=== PATIENT | female | born 1985 | race Caucasian/White ===

== ENCOUNTER 2019-08-28 20:49 | Emergency (ER) | payer MEDICAID ==
[~2019-08-28] VITALS: Ht 170.2 cm; Wt 86.3 kg
[~2019-08-28 20:49] MED LIST: CYCL-1 PO; HYDR-4383 PO; NAPR-1154 PO
[2019-08-28] MEDS ORDERED: acetaminophen 325mg tablet PO ONE (21:30)
--- NOTE | 2019-08-28 21:49 | NUR ---
GIVEN TYLENOL PO AND GETTING LABS DRAWN NOW. AWAITING ROOM
[2019-08-28 22:22] LABS: ALANINE AMINOTRANSFERASE 13 U/L (12-78); ALBUMIN 3.3 G/DL (3.4-5.0); ALBUMIN/GLOBULIN RATIO 0.7 (1.1-1.5); ALKALINE PHOSPHATASE 100 IU/L (46-116); ANION GAP 9 (8-16); ASPARTATE AMINO TRANSFERASE 14 U/L (10-37); BILIRUBIN,TOTAL 0.5 MG/DL (0.1-1.0); BLOOD UREA NITROGEN 10 MG/DL (7-18); BUN/CREATININE RATIO 11.2 (6.6-38.0); CALCIUM 8.7 MG/DL (8.5-10.1); CHLORIDE 98 MMOL/L (99-107); CREATININE 0.89 MG/DL (0.40-0.90); GLUCOSE 113 MG/DL (70-104); POTASSIUM 3.8 MMOL/L (3.5-5.1); SODIUM 130 MMOL/L (135-145); TOTAL CARBON DIOXIDE 22.9 MMOL/L (24-32); TOTAL PROTEIN 7.9 G/DL (6.4-8.2); eGFR 74 ML/MIN
[2019-08-28 23:16] LABS: BASOPHILS # (AUTO) 0.1 X10'3 (0-0.2); BASOPHILS % (AUTO) 0.4 % (0-1); EOSINOPHILS % (AUTO) 0.1 % (0-6); HEMATOCRIT 33.1 % (35.0-45.0); HEMOGLOBIN 10.9 g/dl (12.0-16.0); LYMPHOCYTES # (AUTO) 1.3 X10'3 (1.1-4.8); MEAN CORPUSCULAR HEMOGLOBIN 25.5 PG (27.0-31.0); MEAN CORPUSCULAR HGB CONC 32.9 g/dL (33.0-36.5); MEAN CORPUSCULAR VOLUME 77.4 FL (78-98); MEAN PLATELET VOLUME 8.2 FL (7.4-10.4); MONOCYTES # (AUTO) 0.8 X10'3 (0-0.9); MONOCYTES % (AUTO) 5.8 % (2-12); NEUTROPHILS # (AUTO) 10.8 X10'3 (1.8-7.7); NEUTROPHILS % (AUTO) 83.7 % (42-75); PLATELET COUNT 319 X10'3 (140-440); RED BLOOD COUNT 4.27 X10'6 (4.20-5.60); RED CELL DISTRIBUTION WIDTH 16.7 % (11.5-14.5)
[2019-08-28 23:31] LABS: PARTIAL THROMBOPLASTIN TIME 38 SECONDS (22-32)
[2019-08-29] MEDS ORDERED: LIDOcaine 1% W/epiNEPHrine 1:200,000 10ml vial IJ ONE (00:35)
[2019-08-29] MEDS ORDERED: cephalexin 250mg capsule PO ONE (00:35)
[2019-08-29 00:56] LABS: CLARITY,URINE SLIGHTLY CLOUDY (Clear); COLOR,URINE YELLOW (Yellow); GLUCOSE, URINE NEGATIVE (Neg); KETONES,URINE NEGATIVE (Neg); LEUKOCYTE ESTERASE ,URINE MODERATE (Neg); NITRITES, URINE NEGATIVE (Neg); OCCULT BLOOD,URINE SMALL (Neg); PROTEIN,URINE NEGATIVE (Neg); URINE HCG NEGATIVE (NEG)
[2019-08-29 01:07] LABS: UA COLLECTION TYPE NON-SPECIFIED
[2019-08-29 01:10] LABS: RBC,URINE NONE SEEN /HPF (0-2)
[2019-08-29 01:11] LABS: BACTERIA,URINE 3+ /HPF (Neg); SQUAMOUS EPITHELIAL CELL,UR FEW /LPF (FEW)
[2019-08-29] MEDS ORDERED: CEPH-572 PO (01:37)
[2019-08-29] MEDS ORDERED: DOXY100C43 PO (01:37)
--- NOTE | 2019-08-29 02:37 | NUR ---
Call out placed multiple times to Ilya Anna per pt's request, no call back/response. Unable to leave voicemail.
--- NOTE | 2019-08-29 02:37 | NUR ---
Ilya Anna number: [phone]
[2019-08-29 04:47] VITALS: BP 109/64
== END 2019-08-29 04:48 | disposition home or self-care (01) ==
LOC: ER 20:50
DX: L03.116 Cellulitis of left lower limb (principal); L02.416 Cutaneous abscess of left lower limb; J18.9 Pneumonia, unspecified organism; N39.0 Urinary tract infection, site not specified; M79.10 Myalgia, unspecified site; F15.90 Other stimulant use, unspecified, uncomplicated; Z98.890 Other specified postprocedural states; Z79.2 Long term (current) use of antibiotics; Z79.899 Other long term (current) drug therapy
CPT/HCPCS: 10060; 36415; 71045; 80053; 81001; 81025; 83605; 84145; 85025; 85610; 85730; 87040; 87077; 87088; 87186; 87502; 87503; 99284

== ENCOUNTER 2023-10-04 08:53 | Emergency (ER) | payer MEDICAID ==
[~2023-10-04] VITALS: Ht 170.2 cm; Wt 68.0 kg
[2023-10-04 08:54] VITALS: BP 126/81; PULSE 98; RESP 18; TEMP 98; O2SAT 99
== END 2023-10-04 11:48 | disposition home or self-care (01) ==
LOC: ER 08:54
DX: T65.891A Toxic effect of other specified substances, accidental (unintentional), initial encounter (principal); T26.61XA Corrosion of cornea and conjunctival sac, right eye, initial encounter; F15.90 Other stimulant use, unspecified, uncomplicated; Z98.891 History of uterine scar from previous surgery; Z79.899 Other long term (current) drug therapy; Y93.89 Activity, other specified; Y92.89 Other specified places as the place of occurrence of the external cause; Y99.8 Other external cause status
CPT/HCPCS: 99282

== ENCOUNTER 2024-03-26 02:20 | Emergency (ER) | payer MEDICAID ==
[~2024-03-26] VITALS: Ht 170.2 cm; Wt 81.8 kg
[2024-03-26 02:25] VITALS: BP 118/82; PULSE 91; RESP 16; TEMP 98.1; O2SAT 98
[2024-03-26] MEDS ORDERED: COROTSUS OT (02:42)
== END 2024-03-26 03:12 | disposition home or self-care (01) ==
LOC: ER 02:21
DX: H60.92 Unspecified otitis externa, left ear (principal); F17.210 Nicotine dependence, cigarettes, uncomplicated; Z79.2 Long term (current) use of antibiotics; Z79.899 Other long term (current) drug therapy; Z98.890 Other specified postprocedural states
CPT/HCPCS: 99283